=== PATIENT | female | born 1955 | race Two or more races ===

== ENCOUNTER 2018-02-28 16:21 | Emergency (ER) | payer OTHER ==
[~2018-02-28] VITALS: Ht 165.1 cm; Wt 68.9 kg
[~2018-02-28 16:21] MED LIST: MOTRIN
[2018-02-28 16:35] VITALS: BP 133/85
[2018-02-28 19:15] VITALS: BP 123/74
== END 2018-02-28 19:15 | disposition home or self-care (01) ==
LOC: MED 16:21
DX: I83.91 Asymptomatic varicose veins of right lower extremity (principal); Z79.1 Long term (current) use of non-steroidal anti-inflammatories (NSAID)
CPT/HCPCS: 93971; 99284; Q0092